=== PATIENT | female | born 1960 | race Caucasian/White ===

== ENCOUNTER 2016-07-19 13:14 | Outpatient (CLI) ==
[2012-09-25 15:48] VITALS: TEMP 97.7
[2015-04-02 16:01] VITALS: BMI 29.2
--- NOTE | 2016-07-19 14:15 | DI ---
EXAM: Three views of the right foot. History: Right foot pain. Findings: No acute fracture or dislocation. Small plantar spur. Mild polyarticular joint space na rrowing. No radiopaque foreign bodies. Impression: No acute osseous abnormality. Mild arthritis.
== END 2016-07-19 13:15 | disposition home or self-care (01) ==
LOC: RAD 13:14
PROVIDERS: ATTEND Internal Medicine
DX: M79.671 Pain in right foot (principal)

== ENCOUNTER 2016-10-28 11:01 | Outpatient (CLI) ==
[2012-09-25 15:48] VITALS: TEMP 97.7
[2015-04-02 16:01] VITALS: BMI 29.2
[2016-10-28 11:17] LABS: BASOPHILS % (AUTO) 0.6 % (0.0-3.0); EOSINOPHILS # (AUTO) 0.1 K/ul (0.0-0.7); EOSINOPHILS % (AUTO) 1.7 % (0.0-7.0); HEMATOCRIT 35.8 % (37.0-47.0); HEMOGLOBIN 12.6 g/dl (12.0-16.0); IMMATURE GRANULOCYTE % (AUTO) 0.4 % (0.0-5.0); LYMPHOCYTES # (AUTO) 1.7 K/uL (0.60-3.4); LYMPHOCYTES % (AUTO) 23.9 (10.0-50.0); MEAN CORPUSCULAR HEMOGLOBIN 30.4 pg (27.0-31.0); MEAN CORPUSCULAR HGB CONC 35.2 (31.8-35.4); MEAN CORPUSCULAR VOLUME 86.5 fl (81.0-99.0); MONOCYTES # (AUTO) 0.6 K/uL (0.4-2.0); NEUTROPHILS # (AUTO) 4.7 K/ul (2.0-6.9); NEUTROPHILS % (AUTO) 65.4; PLATELET COUNT 205 10^3/uL (140-440); RED BLOOD COUNT 4.14 10^6/ul (4.20-5.40); WHITE BLOOD COUNT 7.21 K/ul (4.6-10.2)
[2016-10-28 11:42] LABS: ALBUMIN 4.2 g/dL (3.4-5.0); ALBUMIN/GLOBULIN RATIO 1.08; ANION GAP 14.9; BILIRUBIN,TOTAL 0.51 mg/dL (0.00-1.20); BUN/CREATININE RATIO 10.89; CALCIUM 9.9 mg/dL (8.2-10.2); CREATININE 1.01 mg/dL (0.60-1.30); POTASSIUM 3.9 mmol/L (3.5-5.10); TOTAL PROTEIN 8.1 g/dL (6.4-8.2)
== END 2016-10-28 11:02 | disposition home or self-care (01) ==
LOC: LAB 11:01
PROVIDERS: ATTEND Internal Medicine
DX: R10.9 Unspecified abdominal pain (principal); R11.2 Nausea with vomiting, unspecified
CPT/HCPCS: 36415; 80053; 85025

== ENCOUNTER 2017-04-06 08:12 | Outpatient (CLI) ==
[2012-09-25 15:48] VITALS: TEMP 97.7
[2015-04-02 16:01] VITALS: BMI 29.2
== END 2017-04-06 08:13 | disposition home or self-care (01) ==
LOC: LAB 08:12
PROVIDERS: ATTEND Internal Medicine
DX: E11.9 Type 2 diabetes mellitus without complications (principal); I10 Essential (primary) hypertension; I63.9 Cerebral infarction, unspecified; R94.5 Abnormal results of liver function studies
CPT/HCPCS: 36415; 80053; 85025

== ENCOUNTER 2017-04-07 07:27 | Outpatient (CLI) ==
[2012-09-25 15:48] VITALS: TEMP 97.7
[2015-04-02 16:01] VITALS: BMI 29.2
--- NOTE | 2017-04-07 08:48 | US ---
EXAM: Ultrasound abdomen limited right upper quadrant HISTORY: Obstructive jaundice COMPARISON: None TECHNIQUE: Limited ultrasound abdomen right upper quadrant was performed FINDINGS: Visualized portion pancreas appears normal. Portions of the pancreas obscured secondary geoff wel gas shadowing. Liver normal in size and echogenicity. Main portal vein patent with direction of flow. Patient status post cholecystectomy. No biliary duct dilation with common bile duct measurin g 0.4 cm, noting distal common bile duct not visualized. IMPRESSION: Status post cholecystectomy. No biliary duct dilation, noting distal common bile duct n ot visualized.
== END 2017-04-07 07:28 | disposition home or self-care (01) ==
LOC: RAD 07:27
PROVIDERS: ATTEND Internal Medicine
DX: K83.1 Obstruction of bile duct (principal)

== ENCOUNTER 2017-05-16 06:58 | Outpatient (CLI) ==
[2012-09-25 15:48] VITALS: TEMP 97.7
[2015-04-02 16:01] VITALS: BMI 29.2
--- NOTE | 2017-05-16 09:13 | CT ---
EXAM: CT of the abdomen pelvis without contrast History: Abdominal pain. Comparison: Abdominal ultrasound 04/07/2017, CT abdomen pelvis 04/02/2015 Technique: Multiplanar CT images through the abdomen pelvis were obtained without the administration of IV contrast Findings: No change in the sub-centimeter pleural-based lung nodules. No acute osseous abnormalities. Status post cholecystectomy. Pneumobilia again seen within the liver. Spleen is unremarkable. No r enal stones and no hydronephrosis. No peripancreatic inflammation. Adrenal glands are unremarkable. No ureteral calculi. No bladder wall thickening. Adnexal structures appear appropriate for patien t's age. No bowel obstruction. No free air and no ascites. No inflammatory stranding. No perirect al inflammation. The appendix is not dilated or inflamed. Postsurgical changes of the bowel in the left abdomen. Impression: No acute intra-abdominal or pelvic process. No change compared to the prior study.
== END 2017-05-16 06:59 | disposition home or self-care (01) ==
LOC: RAD 06:58
PROVIDERS: ATTEND Internal Medicine
DX: R10.9 Unspecified abdominal pain (principal)

== ENCOUNTER 2017-12-19 21:16 | Inpatient (IN) ==
[2017-12-19] MEDS ORDERED: SODIUM CHLORIDE 1,000 ML IV STA (21:55)
[2017-12-19] MEDS ORDERED: ZOFRAN 4 MG/2 ML IVP STA (21:56)
[2017-12-19] MEDS ORDERED: ZOSYN 3.375 GM 3.375 GM in SODIUM CHLORIDE 50 ML IV STA (21:56)
[2017-12-19] MEDS ORDERED: MORPHINE 2 MG/ML SYRINGE IVP STA (22:01)
--- NOTE | 2017-12-19 23:48 | CT ---
EXAM: CT chest without intravenous contrast 12/19/2017. Sagittal and coronal reformatted images obt ained HISTORY: Cough and fever COMPARISON: 04/02/2015 FINDINGS: The heart size appears within normal limits. No pericardial effusion. Multifocal atelectasis. There is scattered small micro nodules of lesser and 3 mm diameter which lik katherine benign. Subpleural nodule in the left lower lobe on image 42 measures approximately 8 mm diameter. Subpleura l nodule in the right lower lobe on image 35 measures approximately 7 mm diameter. There is no focal pulmonary consolidation. No pleural effusion or pneumothorax. Limited views of the upper abdomen shows surgical changes of cholecystectomy. Pneumobilia. Trace fl uid along the inferior and posterior aspect of the liver. IMPRESSION: 1. Multifocal atelectasis. 2. Scattered benign appearing micro nodules. 3. Left lower lobe subpleural nodule 8 mm diameter. Right lower lobe subpleural nodule 7 mm diamete r. Follow-up CT chest could be obtained in approximately six - 12 months. 4. Please refer to report of CT abdomen pelvis for further evaluation.
--- NOTE | 2017-12-20 00:01 | CT ---
EXAM: CT abdomen and pelvis without and with intravenous contrast 12/19/2017. Sagittal and coronal reformatted images obtained HISTORY: Right upper quadrant pain and fever COMPARISON: 05/16/2017 FINDINGS: Postoperative changes of cholecystectomy. Pneumobilia is present. Edema is present along the inferior and posterior aspect of the right lobe of the liver. Focal low density within the live r at this site appears stable. Surrounding edema has increased. The adrenal glands and kidneys show no acute abnormality. The spleen shows no acute abnormality. Th e pancreatic duct measures up to approximately 3 mm diameter. This appears grossly stable. There is no evidence of bowel obstruction. A small amount of gas is present in the urinary bladder. This could be due to recent instrumentation versus infection. Normal appendix. IMPRESSION: 1. Edema is present along the inferior and posterior aspect of the right lobe of the liver. This is of uncertain etiology. This is new since the prior study. 2. Focal low density within the right lobe of the liver. This was also present on the prior study a nd appears stable. If further characterization of the liver is clinically indicated then MRI could be obtained. 3. Postoperative changes of cholecystectomy. 4. Pneumobilia. 5. No urinary or bowel obstruction. Normal appendix. 6. Gas within the urinary bladder. This could be due to recent instrumentation versus infection.
--- NOTE | 2017-12-20 00:15 | ED.PDOC ---
General ED Provider: Dr. KALPESH HILLMAN-ER Chief Complaint: Fever Stated Complaint: IM RUNNING FEVER AND MY BACK HURTS Time Seen by Physician: 21:30 Mode of Arrival: Walk-In Information Source: Patient Exam Limitations: No limitations Primary Care Provider: LILIA CONDON Nursing and Triage Documentation Reviewed and Agree: Yes Does patient meet sepsis criteria?: No System Inflammatory Response Syndrome: Not Applicable Sepsis Protocol: For patient's 13 years and over: Temp is 96.8 and below OR 101 and greater Pulse >90 BPM Resp >20/minute Acutely Altered Mental Status Are patient's symptoms suggestive of a new infection, such as: -Pneumonia -Skin, Soft Tissue -Endocarditis -UTI -Bone, Joint Infection -Implantable Device -Acute Abdominal Infection -Wound Infection -Meningitis -Blood Stream Catheter Infection -Unknown GI Complaint Exam - Abdominal Pain Complaint/Exam Onset: Gradual Duration: SEVERAL HOURS Symptoms Are: Still present Timing: Intermittent Initial Severity: Mild Current Severity: Mild Location of Pain: Diffuse Radiates To: Reports: Back, Flank Character: Reports: Dull, Aching Alleviating: Reports: Spontaneous resolution Associated Signs and Symptoms: Reports: Fever, Back pain Differential Diagnoses: Pancreatitis Review of Systems - Review Of Systems Constitutional: Reports: Fever Eyes: Reports: No symptoms Ears, Nose, Mouth, Throat: Reports: No symptoms Respiratory: Reports: No symptoms Cardiac: Reports: No symptoms GI: Reports: Abdominal pain, Nausea : Reports: Flank pain Musculoskeletal: Reports: No symptoms Skin: Reports: No symptoms Neurological: Reports: No symptoms Endocrine: Reports: No symptoms Hematologic/Lymphatic: Reports: No symptoms All Other Systems: Reviewed and Negative Past Medical History - Past Medical History Previously Healthy: No Endocrine: Reports: None Cardiovascular: Reports: Hypertension Respiratory: Reports: None Hematological: Reports: None Gastrointestinal: Reports: None Genitourinary: Reports: None Neuro/Psych: Reports: Anxiety, Depression Musculoskeletal: Reports: None Cancer: Reports: None Last Menstrual Period: 5 YEARS AGO - Surgical History General Surgical History: Reports: Hysterectomy, Cholecystectomy, Orthopedic ( right forearm) - Family History Family History: Reports: None - Social History Smoking Status: Former smoker Hx Substance Use: No Alcohol Screening: None - Immunizations Tetanus Shot up to Date: Yes Physical Exam - Physical Exam Appearance: Well-appearing, No pain distress, Well-nourished Eyes: DEL, EOMI, Conjunctiva clear ENT: Ears normal, Nose normal, Oropharynx normal Neck: Supple Respiratory: Airway patent, Breath sounds clear, Breath sounds equal, Respirations nonlabored Cardiovascular: RRR GI/: Soft, Tender Musculoskeletal: Normal strength, ROM intact, No edema, No calf tenderness Skin: Warm, Dry, Normal color Neurological: Sensation intact, Motor intact, Reflexes intact, Cranial nerves intact, Alert, Oriented Psychiatric: Affect appropriate, Mood appropriate Interpretation - Radiology Interpretation Radiology Interpretation By: Radiologist Radiology Results: Positive Exam Interpreted: CT Scan Re-Evaluation - Re-Evaluation Time of Re-Evaluation: 00:16 Status: Improved Vital Signs Stable: Yes Pain Level: 0 Appearance: NAD Lungs: Clear Skin: Warm and Dry Neuro: Alert and Oriented X3 CV: RRR Physician Notification - Case Discussed Physician Notified: dr condon Time of Notification: 00:17 Critical Care Note - Critical Care Note Total Time (mins): 0 Course - Course Hematology/Chemistry: 12/19/17 22:10 12/19/17 22:10 Orders, Labs, Meds: Lab Review 12/19/17 12/19/17 12/19/17 21:55 22:10 22:10 WBC 16.07 H RBC 3.57 L Hgb 10.7 L Hct 30.7 L MCV 86.0 MCH 30.0 MCHC 34.9 RDW Coeff of Lj 11.5 L Plt Count 260 Immature Gran % (Auto) 0.4 Neut % (Auto) 80.1 Lymph % (Auto) 9.1 L [place] % (Auto) 10.0 Eos % (Auto) 0.2 Baso % (Auto) 0.2 Immature Gran # (Auto) 0.1 Neut # (Auto) 12.9 H Lymph # (Auto) 1.5 [place] # (Auto) 1.6 Eos # (Auto) 0.0 Baso # (Auto) 0.0 Sodium 137.4 Potassium 4.04 Chloride 99.7 Carbon Dioxide 28.8 Anion Gap 12.94 BUN 13.8 Creatinine 1.05 Estimated GFR (MDRD) 54.00 BUN/Creatinine Ratio 13.14 Glucose 196.6 H Lactic Acid Calcium 9.58 Total Bilirubin 0.83 AST 19.1 ALT 14.6 Alkaline Phosphatase 107.4 Total Protein 8.05 Albumin 4.23 Globulin 3.82 Albumin/Globulin Ratio 1.10 Amylase 44.5 Lipase 58.1 Procalcitonin Urine Color Yellow Urine Clarity Slightly Urine pH 5.5 Ur Specific [place] 1.010 Urine Protein Negative Urine Glucose (UA) Negative Urine Ketones Negative Urine Blood Trace-lysed Urine Nitrite Negative Urine Bilirubin Negative Urine Urobilinogen 0.2 Ur Leukocyte Esterase 1+ Urine Microscopic RBC 0-2 Urine Microscopic WBC 5-10 Ur Squamous Epith Cells 0-2 Urine Bacteria 3+ 12/19/17 12/19/17 22:10 22:10 WBC RBC Hgb Hct MCV MCH MCHC RDW Coeff of Lj Plt Count Immature Gran % (Auto) Neut % (Auto) Lymph % (Auto) [place] % (Auto) Eos % (Auto) Baso % (Auto) Immature Gran # (Auto) Neut # (Auto) Lymph # (Auto) [place] # (Auto) Eos # (Auto) Baso # (Auto) Sodium Potassium Chloride Carbon Dioxide Anion Gap BUN Creatinine Estimated GFR (MDRD) BUN/Creatinine Ratio Glucose Lactic Acid 1.39 Calcium Total Bilirubin AST ALT Alkaline Phosphatase Total Protein Albumin Globulin Albumin/Globulin Ratio Amylase Lipase Procalcitonin 0.36 Urine Color Urine Clarity Urine pH Ur Specific [place] Urine Protein Urine Glucose (UA) Urine Ketones Urine Blood Urine Nitrite Urine Bilirubin Urine Urobilinogen Ur Leukocyte Esterase Urine Microscopic RBC Urine Microscopic WBC Ur Squamous Epith Cells Urine Bacteria Orders Category Date Time Status NPO REMINDER: IMAGING ONCE CARE 12/19/17 21:56 Completed IV [ED IV/MEDIPORT/POWERPORT] .ONCE EMERGENCY 12/19/17 21:55 Active AMYLASE Stat LAB 12/19/17 22:10 Completed BLOOD CULTURE (ED ONLY) Stat LAB 12/19/17 22:10 Received CBC W/ AUTO DIFF Stat LAB 12/19/17 22:10 Completed COMPREHENSIVE METABOLIC PANEL Stat LAB 12/19/17 22:10 Completed LACTIC ACID Stat LAB 12/19/17 22:10 Completed LIPASE Stat LAB 12/19/17 22:10 Completed PROCALCITONIN Stat LAB 12/19/17 22:10 Completed URINALYSIS C & S IF INDICATED Stat LAB 12/19/17 21:55 Completed URINE CULTURE Routine LAB 12/19/17 23:08 Received 0.9 % Sodium Chloride [Saline Flush] MEDS 12/19/17 21:55 Ordered 1 syr IVF PRN PRN Morphine Sulfate [Morphine 2 mg/ml Syringe] MEDS 12/19/17 22:01 Discontinued 2 mg IVP ONCE STA Ondansetron HCl/Pf [Zofran 4 mg/2 ml] MEDS 12/19/17 21:56 Discontinued 4 mg IVP ONCE STA Piperacillin Sodium/Tazobactam [Zosyn 3.375 gm] 3.375 MEDS 12/19/17 21:56 Discontinued gm 0.9 % Sodium Chloride [Sodium Chloride] 50 ml IV ONCE Sodium Chloride 0.9% [Sodium Chloride] 1,000 ml MEDS 12/19/17 21:55 Active IV 125 mls/hr CT ABDOMEN/PELVIS W/WO CONTRAS Stat RADS 12/19/17 21:[address] CHEST W/O CONTRAST Stat RADS 12/19/17 21:55 Completed Medications Generic Name Dose Route Start Last Admin Trade Name Freq PRN Reason Stop Dose Admin Sodium Chloride 1,000 mls @ 125 mls/hr 12/19/17 21:55 12/19/17 22:46 Sodium Chloride IV 12/20/17 05:54 125 mls/hr .Q8H STA Administration Sodium Chloride 1 syr 12/19/17 21:55 Saline Flush IVF PRN PRN To flush IV Discontinued Medications Generic Name Dose Route Start Last Admin Trade Name Freq PRN Reason Stop Dose Admin Piperacillin Sod/Tazobactam 50 mls @ 50 mls/hr 12/19/17 21:56 12/19/17 22:46 Sod 3.375 gm/ Sodium Chloride IV 12/19/17 22:55 50 mls/hr ONCE STA Administration Morphine Sulfate 2 mg 12/19/17 22:01 12/19/17 22:55 Morphine 2 Mg/Ml Syringe IVP 12/19/17 22:02 2 mg ONCE STA Administration Ondansetron HCl 4 mg 12/19/17 21:56 12/19/17 22:55 Zofran 4 Mg/2 Ml IVP 12/19/17 21:57 4 mg ONCE STA Administration Vital Signs: Temp Pulse Resp BP Pulse Ox 12/19/17 21:16 102.1 F H 106 H 20 133/81 96 Departure - Departure Time of Disposition: 00:17 Disposition: ADMITTED INPATIENT Discharge Problem: Fever, Flank pain Abdominal pain Qualifiers: Abdominal location: unspecified location Qualified Code(s): R10.9 - Unspecified abdominal pain UTI (urinary tract infection) Qualifiers: Urinary tract infection type: site unspecified Hematuria presence: without hematuria Qualified Code(s): N39.0 - Urinary tract infection, site not specified Instructions: Urinary Tract Infection in Women (ED) Condition: Good Pt referred to PMD for follow-up: Yes IPMP verified?: No Allergies/Adverse Reactions: Allergies codeine Adverse Reaction (Verified 12/19/17 21:30) Nausea Home Medications: Ambulatory Orders Enalapril Maleate [Vasotec] 20 mg PO BID 09/25/12 Lorazepam [Ativan] 0.5 mg PO TID PRN 09/25/12 Aspirin [Ecotrin] 325 mg PO DAILYWM #30 tablet. 04/05/15 Hydrocodone Bit/Acetaminophen [[place] 5-325] 1 tab PO BID PRN 04/05/15 Triamterene/Hydrochlorothiazid [Dyazide] 1 cap PO DAILY #30 capsule 04/05/15 Amlodipine Besylate [Norvasc] 5 mg PO DAILY 12/19/17 Losartan Potassium 100 mg PO DAILY 12/19/17 Disposition Discussed With: Patient, Family
[2017-12-20] MEDS ORDERED: TYLENOL PO PRN (00:19)
[2017-12-20] MEDS ORDERED: ATIVAN PO PRN (00:21)
[2017-12-20] MEDS ORDERED: SODIUM CHLORIDE 1,000 ML IV SCH (00:30)
[2017-12-20 01:14] VITALS: BMI 28.2
[2017-12-20] MEDS: MORPHINE 2 MG/ML SYRINGE IVP PRN ×5 (01:20→21:25)
[2017-12-20] MEDS: ZOFRAN 4 MG/2 ML IVP PRN ×4 (01:21→21:38)
[2017-12-20] MEDS: ZOSYN 3.375 GM 3.375 GM in SODIUM CHLORIDE 50 ML IV SCH ×4 (06:06→23:52)
[2017-12-20] MEDS: DYAZIDE PO SCH (08:30)
[2017-12-20] MEDS: COZAAR PO SCH (08:30)
[2017-12-20] MEDS: VASOTEC PO SCH ×2 (08:30→21:29)
[2017-12-20] MEDS: ASPIRIN EC PO SCH (08:30)
[2017-12-20] MEDS: LOVENOX SUBCUT SCH (08:31)
[2017-12-20] MEDS: NORVASC PO SCH (08:31)
--- NOTE | 2017-12-20 08:40 | PCM.PROG ---
Attending Provider: ATTENDING PROVIDER: Dr. LILIA BAUMANN DATE OF SERVICE: 12/20/17 SUBJECTIVE: This 57 year old WHITE/ F was hospitalized 12/20/17 with fever and chills. She is feeling better now. She is talking normally and is not sick. She didn't feel good for 4 days with right posterior renal angle pain mostly on deep breaths with fever. UA abnormal. CT scan of abdomen posteriorly shows inflammation around liver part. Will do US of kidneys and liver. REVIEW OF SYSTEMS: CONSTITUTIONAL: No night sweats. No fatigue, malaise, lethargy. No fever or chills. HEENT: Eyes: No visual changes. No eye pain. No eye discharge. ENT: No runny nose. No epistaxis. No sinus pain. No odynophagia. No congestion. RESPIRATORY: No cough, no congestion. No hemoptysis. No shortness of breath. CARDIOVASCULAR: No angina symptoms. No CHF symptoms. No atypical chest pain for CAD. No palpitations. No orthopnea.. GASTROINTESTINAL: No abdominal pain. No nausea or vomiting. No diarrhea or constipation. No hematemesis. No hematochezia. GENITOURINARY: No urgency. No frequency. No dysuria. No hematuria. No obstructive symptoms. No discharge. No pain. No significant abnormal bleeding. MUSCULOSKELETAL: No musculoskeletal pain; no joint swelling. NEUROLOGICAL: Awake, alert, oriented to time, place and person. No headache. No neck pain. No syncope. No seizures. No dizziness. PSYCHIATRIC: Not anxious. No depression. No suicidal thoughts. No homicidal thoughts. SKIN: No rash. No lesions. No wounds. ENDOCRINE: No unexplained weight loss. No weight gain. HEMATOLOGIC/LYMPHATIC: No anemia. No purpura. No petechiae. No prolonged or excessive bleeding. No palpable lymph nodes. PHYSICAL EXAMINATION: GENERAL: The patient is awake, alert and oriented, lying/sitting in bed in no distress. VITAL SIGNS: Temperature 99.9 F, Pulse 80, Respiratory Rate 20, BP 109/60, Pulse Ox 93% HEENT: Head normocephalic, atraumatic. Eyes: Extraocular muscles are intact. Pupils are equal, round and reactive to light and accommodation. Ears: No lesions. Nose appeared normal. Throat: No exudate or erythema. NECK: Supple. No JVD, no carotid bruit. No lymphadenopathy or thyromegaly. LUNGS: Clear to auscultation. Percussion note normal. Chest symmetrical. HEART: S1, S2, no S3. No murmurs. No cyanosis or clubbing. No ascites. Pulses: Dorsalis pedis and posterior tibial pulses +1 to +2 both sides. ABDOMEN: Soft. Non-tender. Bowel sounds active. No CVA tenderness. No mass felt. EXTREMITIES: No edema. Full range of motion of all extremities, equal. NEUROLOGIC: No focal deficit. Cranial nerves II through XII are grossly intact. No headache, no double vision or headache. SKIN: Warm and dry. Intact. Turgor-normal. LYMPHATIC: No palpable lymph nodes/no lymphedema. MUSCULOSKELETAL: Normal joints with no swelling. Muscle tone is normal. LAB REVIEW: 12/20/17 05:05 12/20/17 05:05 12/20/17 05:05: Sodium 136.0 L, Potassium 3.60, Chloride 100.0, Carbon Dioxide 31.0 H, Anion Gap 8.60, BUN 12.0, Creatinine 0.90, Estimated GFR (MDRD) 64.00, BUN/Creatinine Ratio 13.33, Glucose 163.0 H, Calcium 8.80, Total Bilirubin 0.90 , AST 18.0, ALT 13.0, Alkaline Phosphatase 86.0, Total Protein 7.30, Albumin 3.60, Globulin 3.70, Albumin/Globulin Ratio 0.97 12/20/17 05:05: WBC 14.64 H, RBC 3.34 L, Hgb 9.8 L, Hct 29.2 L, MCV 87.4, MCH 29.3, MCHC 33.6, RDW Coeff of Lj 11.5 L, Plt Count 256, Immature Gran % (Auto) 0.5, Neut % (Auto) 76.2, Lymph % (Auto) 11.0, [place] % (Auto) 11.9 H, Eos % (Auto ) 0.2, Baso % (Auto) 0.2, Immature Gran # (Auto) 0.1, Neut # (Auto) 11.2 H, Lymph # (Auto) 1.6, [place] # (Auto) 1.7, Eos # (Auto) 0.0, Baso # (Auto) 0.0 12/19/17 22:10: Procalcitonin 0.36 12/19/17 22:10: Lactic Acid 1.39 12/19/17 22:10: Sodium 137.4, Potassium 4.04, Chloride 99.7, Carbon Dioxide 28.8 , Anion Gap 12.94, BUN 13.8, Creatinine 1.05, Estimated GFR (MDRD) 54.00, BUN/ Creatinine Ratio 13.14, Glucose 196.6 H, Calcium 9.58, Total Bilirubin 0.83, AST 19.1, ALT 14.6, Alkaline Phosphatase 107.4, Total Protein 8.05, Albumin 4.23 , Globulin 3.82, Albumin/Globulin Ratio 1.10, Amylase 44.5, Lipase 58.1 12/19/17 22:10: WBC 16.07 H, RBC 3.57 L, Hgb 10.7 L, Hct 30.7 L, MCV 86.0, MCH 30.0, MCHC 34.9, RDW Coeff of Lj 11.5 L, Plt Count 260, Immature Gran % (Auto) 0.4, Neut % (Auto) 80.1, Lymph % (Auto) 9.1 L, [place] % (Auto) 10.0, Eos % (Auto) 0.2, Baso % (Auto) 0.2, Immature Gran # (Auto) 0.1, Neut # (Auto) 12.9 H, Lymph # (Auto) 1.5, [place] # (Auto) 1.6, Eos # (Auto) 0.0, Baso # (Auto) 0.0 12/19/17 21:55: Urine Color Yellow, Urine Clarity Slightly, Urine pH 5.5, Ur Specific [place] 1.010, Urine Protein Negative, Urine Glucose (UA) Negative, Urine Ketones Negative, Urine Blood Trace-lysed, Urine Nitrite Negative, Urine Bilirubin Negative, Urine Urobilinogen 0.2, Ur Leukocyte Esterase 1+, Urine Microscopic RBC 0-2, Urine Microscopic WBC 5-10, Ur Squamous Epith Cells 0-2, Urine Bacteria 3+ ASSESSMENT: LIKELY ACUTE PYELONEPHRITIS WITH ABNORMAL UA/FEVER AND CHILLS, RULE OUT SUBHEPATIC ABSCESS OR ANYTHING RELATED TO LIVER PLAN: 1. US of liver and kidneys 2. Daily CBC and CMP 3. Continue IV antibiotics 4. Add Azactam 1 gm q.12h Plan and coordination of the patient's care discussed in the presence of Medical Front Desk Coordinator and nurse. CONDITION: Stable SCRIBED BY: DAX RODAS Blast Hole Driller scribed while in presence of service performed by Dr. LILIA BAUMANN on 12/20/17 ([id number])
[2017-12-20] MEDS: SODIUM CHLORIDE 1,000 ML IV SCH ×2 (08:42→23:49)
[2017-12-20] MEDS: AZACTAM 1 GM in SODIUM CHLORIDE 50 ML IV SCH ×2 (09:14→21:55)
[2017-12-20] MEDS: TORADOL IVP PRN ×2 (10:03→18:28)
--- NOTE | 2017-12-20 13:02 | US ---
EXAM: Right upper quadrant abdominal ultrasound. History: Liver lesion. Comparison: CT abdomen pelvis 12/19/2017 Technique: Multiple sonographic images through the abdomen were obtained. Color duplex Doppler was used to interrogate vascular flow. Findings: No liver lesions identified sonographically. Antegrade flow within the main portal vein. No abdomin al ascites. Status post cholecystectomy. Common bile duct measures 0.4 cm in caliber. Limited visu alization of the right kidney demonstrates no evidence for hydronephrosis. Visualized pancreas demon strates no gross abnormality. There is pneumobilia within the liver. Impression: 1. No focal liver lesions identified sonographically. Recommend further evaluation with a MRI liver mass protocol to evaluate the liver lesion seen on recent CT. 2. Pneumobilia. 3. Status post cholecystectomy
--- NOTE | 2017-12-20 13:04 | US ---
EXAM: Renal ultrasound. History: Fever and right flank pain. Comparison: Renal ultrasound 04/08/2015 Technique: Multiple sonographic images through the kidneys were obtained. Color duplex Doppler was used to interrogate vascular flow. Findings: The bladder is not well distended. The right kidney measures 11.8 cm in long length demonstrating normal cortical echogenicity without e vidence for hydronephrosis, mass or shadowing calculus. The left kidney measures 10.3 cm in long length demonstrating normal cortical echogenicity without ev idence for hydronephrosis, mass or shadowing calculus. Impression: Sonographically normal kidneys
[2017-12-21] MEDS: NORCO 5-325 PO PRN ×2 (01:47→13:16)
[2017-12-21] MEDS: ZOSYN 3.375 GM 3.375 GM in SODIUM CHLORIDE 50 ML IV SCH ×4 (05:15→23:05)
[2017-12-21] MEDS: MORPHINE 2 MG/ML SYRINGE IVP PRN ×2 (06:26→22:28)
[2017-12-21] MEDS ORDERED: TORADOL IVP SCH (08:19)
[2017-12-21] MEDS: NORVASC PO SCH ×2 (08:58→09:03)
[2017-12-21] MEDS: AZACTAM 1 GM in SODIUM CHLORIDE 50 ML IV SCH ×2 (08:58→20:07)
[2017-12-21] MEDS: DYAZIDE PO SCH (08:58)
[2017-12-21] MEDS: TORADOL IVP SCH ×3 (08:58→20:08)
[2017-12-21] MEDS: VASOTEC PO SCH (08:58)
[2017-12-21] MEDS: COZAAR PO SCH ×2 (08:59→09:21)
[2017-12-21] MEDS: ASPIRIN EC PO SCH (08:59)
[2017-12-21] MEDS: LOVENOX SUBCUT SCH (09:04)
[2017-12-21] MEDS: ZOFRAN 4 MG/2 ML IVP PRN (10:53)
--- NOTE | 2017-12-21 11:29 | PN ---
DATE OF SERVICE: 12/21/17 SUBJECTIVE: The patient is sitting up in bed. She has had some nausea this morning, no vomiting. Her kidney function is significantly worse. It is unclear how she stated that she takes both Vasotec and Losartan, I believe this is a mixup on her part. Her urine culture is still pending. She did have a fever last night of 100.3. Hemoglobin is down at 8.9 today likely from hemodilution. She had CT of the abdomen which recommended ultrasound of the liver which then recommended MRI of the liver; however, kidney function is going to be too poor for MRI of the liver today. However, liver enzymes are normal. REVIEW OF SYSTEMS: CONSTITUTIONAL: Fever. No night sweats. No fatigue, malaise, lethargy. HEENT: Eyes: No visual changes. No eye pain. No eye discharge. ENT: No runny nose. No epistaxis. No sinus pain. No sore throat. No odynophagia. No congestion. RESPIRATORY: No cough, no congestion. No hemoptysis. No shortness of breath. CARDIOVASCULAR: No angina symptoms. No CHF symptoms. No atypical chest pain for CAD. No palpitations. No orthopnea. GASTROINTESTINAL: Right flank pain. Nausea. No diarrhea or constipation. No hematemesis. No hematochezia. GENITOURINARY: No urgency. No frequency. No dysuria. No hematuria. No obstructive symptoms. No discharge. No pain. No significant abnormal bleeding. MUSCULOSKELETAL: No musculoskeletal pain; no joint swelling. NEUROLOGICAL: No headache. No neck pain. No syncope. No seizures. No dizziness. PSYCHIATRIC: Not anxious. No depression. No suicidal thoughts. No homicidal thoughts. SKIN: No rash. No lesions. No wounds. ENDOCRINE: No unexplained weight loss. No weight gain. HEMATOLOGIC/LYMPHATIC: No anemia. No purpura. No petechiae. No prolonged or excessive bleeding. No palpable lymph nodes. PHYSICAL EXAMINATION: VITAL SIGNS: Temperature 98.6, pulse 58, BP 103/71, respiratory rate 16, 02 sat 95 on room air. HEENT: Head normocephalic, atraumatic. Eyes: Extraocular muscles are intact. Pupils are equal, round and reactive to light and accommodation. Ears: No lesions. Nose appeared normal. Throat: No exudate or erythema. NECK: Supple. No JVD, no carotid bruit. No lymphadenopathy or thyromegaly. LUNGS: Diminished breath sounds no edema. No ascites. Clear to auscultation. Percussion note normal. Chest symmetrical. HEART: S1, S2, no S3. No murmurs. No cyanosis or clubbing. No ascites. Pulses: Dorsalis pedis and posterior tibial pulses +1 to +2 both sides. ABDOMEN: Soft. Bowel sounds active. No CVA tenderness. No mass felt. EXTREMITIES: No edema. Full range of motion of all extremities, equal. NEUROLOGIC: No focal deficit. Cranial nerves II through XII are grossly intact. No headache, no double vision or headache. SKIN: Not dry. Intact. Turgor - normal. LYMPHATIC: No palpable lymph nodes/no lymphedema. MUSCULOSKELETAL: Normal joints with no swelling. Muscle tone is normal. LABS: WBC 12.04, RBC 2.97, Hgb 8.9, Hct 26.2, platelet 223. Chemistries: Sodium 138.5 , potassium 3.78, chloride 104.9, carbon dioxide 28.6, BUN 19.8, creatinine 1.90 , glucose 133.6, calcium 8.39, AST 13.2, ALT 9.5, Alk phos 80.0. Procalcitonin 0.36. ASSESSMENT: 1. ACUTE URINARY TRACT INFECTION 2. NAUSEA 3. ACUTE KIDNEY INJURY 4. DEHYDRATION 5. ANEMIA 6. ABNORMAL LIVER PER CT PLAN: 1. Will order MRI of the liver with contrast however it is unlikely that they will be able to due it today due to kidney function. 2. Increase IV fluids to 100 cc/hr. 3. D/C both Vasotec and Losartan as of today. We will cover her blood pressure if increases. 4. Urine culture pending. TIME SPENT: More than 30 minutes. Plan and coordination of the patient's care discussed in the presence of nurse. JOAQUIN
[2017-12-21] MEDS: SODIUM CHLORIDE 1,000 ML IV SCH (15:15)
[2017-12-22] MEDS: SODIUM CHLORIDE 1,000 ML IV SCH ×3 (03:10→18:01)
[2017-12-22] MEDS: ZOSYN 3.375 GM 3.375 GM in SODIUM CHLORIDE 50 ML IV SCH ×4 (05:01→23:31)
[2017-12-22] MEDS: TORADOL IVP SCH (05:02)
--- NOTE | 2017-12-22 10:13 | HP ---
DATE OF SERVICE: 12/21/17 HISTORY OF PRESENT ILLNESS: This is a 57-year-old white female who presented to the emergency room with her family. She stated she was running a fever. She was having right flank pain. She stated she was nauseated. 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 No malaise, lethargy. Positive for fever, fatigue. HEENT: Eyes: No visual changes. No eye pain. No eye discharge. ENT: No runny nose. No epistaxis. No sinus pain. No sore throat. No odynophagia. No ear pain. No congestion. RESPIRATORY: No cough, no congestion. No hemoptysis. No shortness of breath. CARDIOVASCULAR: No angina symptoms. No CHF symptoms. No atypical chest pain for CAD. No palpitations. No PND. No orthopnea. GASTROINTESTINAL: Nausea. Abdominal pain. No vomiting. No diarrhea or constipation. No hematemesis. No hematochezia. GENITOURINARY: No urgency. No frequency. No dysuria. No hematuria. No obstructive symptoms. No discharge. No pain. No significant abnormal bleeding. MUSCULOSKELETAL: No musculoskeletal pain. No joint swelling. No arthritis. NEUROLOGICAL: No headache. No neck pain. No syncope. No seizures. No dizziness. PSYCHIATRIC: Not anxious. No depression. No suicidal thoughts. No homicidal thoughts. SKIN: No rash. No lesions. No wounds. ENDOCRINE: No unexplained weight loss. No weight gain. HEMATOLOGIC/LYMPHATIC: No anemia. No purpura. No petechiae. No prolonged or excessive bleeding. No palpable lymph nodes. PERSONAL/FAMILY/SOCIAL HISTORY: The patient is a former smoker. No alcohol or ilicit drug use. She currently lives at home with her charge account clerk. MEDICATIONS: (HOME) Ativan 0.5 mg p.o. t.i.d. p.r.n. Vasotec 20 mg p.o. b.i.d. [place] 5-325 one tab p.o. b.i.d. p.r.n. Triamterene/Hydrochlorothiazide (Dyazide) one cap p.o. daily Aspirin (Ecotrin) 325 mg p.o. daily with meal Losartan Potassium 100 mg p.o. daily Norvasc 5 mg p.o. daily ALLERGIES: CODEINE PHYSICAL EXAMINATION: VITAL SIGNS: Temperature 102, heart rate 106, respirations 20, BP 133/81, pulse ox 96% on room air. HEENT: Head normocephalic, atraumatic. Eyes: Extraocular muscles are intact. Pupils are equal, round and reactive to light and accommodation. Ears: No lesions. Nose appeared normal. Throat: No exudate or erythema. NECK: Supple. No JVD, no carotid bruit. No lymphadenopathy or thyromegaly. LUNGS: Diminished breath sounds. Clear to auscultation. Percussion note normal. Chest symmetrical. HEART: S1, S2, no S3. No murmurs. No cyanosis or clubbing. No ascites. Pulses: Dorsalis pedis and posterior tibial pulses +1 to +2 bilaterally. ABDOMEN: Right flank pain. Soft. Nontender. Bowel sounds active. No CVA tenderness. No mass felt. EXTREMITIES: No edema. Full range of motion of all extremities, equal. NEUROLOGIC: No focal deficit. Cranial nerves II through XII are grossly intact. No headache, no double vision or headache. SKIN: Not dry. Intact. Turgor - normal. LYMPHATIC: No palpable lymph nodes/no lymphedema. MUSCULOSKELETAL: Normal joints with no swelling. Muscle tone is normal. White count 16.07, hemoglobin 10.7, hematocrit 30.7, platelets 260. Sodium 137, potassium 4, BUN 13, creatinine 1.05, glucose 196. Calcium 9.58, AST 19, ALT 14 , alkaline phosphatase 107. Amylase 44, lipase 58. Urine shows trace blood, negative ketones, negative nitrites. 1+ leuks, 3+ bacteria. Lactic acid 1.39, procalcitonin 0.36. CT of the abdomen showed edema present along the inferior and posterior aspect of the right lobe of liver which is new. Also showed a focal lobe density within the right lobe of liver which appears stable. Gas within the urinary bladder showing could be due to infection. ASSESSMENT: 1. ACUTE URINARY TRACT INFECTION 2. FEVER 3. ABDOMINAL PAIN 4. ABNORMAL LIVER ON CT SCAN 5. HISTORY OF ELEVATED LIVER ENZYMES 6. DYSLIPIDEMIA 7. DEHYDRATION PLAN: 1. Routine telemetry orders. 2. We will admit. 3. Start on NS at 100 cc/hr. 4. Tylenol 500 mg q.4 to 6 hr p.r.n. as needed for fever. 5. Start on Zosyn 3.375 IV q.6hr along with Azactam 1 gm q.12hr. 6. Toradol 30 mg IV q.8hr. 7. Continue all home medications. 8. Ultrasound of the liver in the morning per recommendation by the CT, liver enzymes are normal. She does have a history of elevated liver function. 9. Regular diet. 10. Zofran 4 mg IV q.6hr p.r.n. for nausea. 11. Will follow closely. TIME SPENT: More than 70 minutes. MTDD
[2017-12-22] MEDS: NORCO 5-325 PO SCH ×2 (10:44→20:39)
[2017-12-22] MEDS: AZACTAM 1 GM in SODIUM CHLORIDE 50 ML IV SCH ×2 (10:44→20:40)
[2017-12-22] MEDS: ASPIRIN EC PO SCH (10:44)
[2017-12-22] MEDS: DYAZIDE PO SCH (10:45)
[2017-12-22] MEDS: NORVASC PO SCH ×2 (10:46→20:40)
[2017-12-22] MEDS: LOVENOX SUBCUT SCH (10:50)
--- NOTE | 2017-12-22 11:57 | PN ---
DATE OF SERVICE: 12/21/17 SUBJECTIVE: Patience Ravi was seen and examined by the Nurse Practitioner. She was feeling somewhat better with less pain in the back. Likely cause of the pain and the fever is acute pyelonephritis. Will continue to monitor the patient's liver profile and kidney functions. The kidney functions went up surprisingly. The patient has been taking Vasotec and Cozaar together. PLAN: 1. Continue IV fluids. 2. Discontinue one of the medications, likely Vasotec. 3. Ultrasound of the kidneys and liver pending. CONDITION: Stable. TIME SPENT: More than 30 minutes. Plan and coordination of the patient's care discussed in the presence of nurse. JOAQUIN
--- NOTE | 2017-12-22 13:30 | PCM.PROG ---
Attending Provider: ATTENDING PROVIDER: Dr. LILIA BAUMANN This patient is seen with Amrita Moore, Nurse Practitioner. DATE OF SERVICE: 12/22/17 SUBJECTIVE: This 57 year old WHITE/ F was hospitalized 12/20/17. The patient still with right abdominal and CVA tenderness. She is scheduled for MRI of the liver. REVIEW OF SYSTEMS: CONSTITUTIONAL: No night sweats. No fatigue, malaise, lethargy. No fever or chills. HEENT: Eyes: No visual changes. No eye pain. No eye discharge. ENT: No runny nose. No epistaxis. No sinus pain. No odynophagia. No congestion. RESPIRATORY: No cough, no congestion. No hemoptysis. No shortness of breath. CARDIOVASCULAR: No angina symptoms. No CHF symptoms. No atypical chest pain for CAD. No palpitations. No orthopnea.. GASTROINTESTINAL: Positive for nausea and flank pain. No vomiting. No diarrhea or constipation. No hematemesis. No hematochezia. GENITOURINARY: No urgency. No frequency. No dysuria. No hematuria. No obstructive symptoms. No discharge. No pain. No significant abnormal bleeding. MUSCULOSKELETAL: No musculoskeletal pain; no joint swelling. NEUROLOGICAL: Awake, alert, oriented to time, place and person. No headache. No neck pain. No syncope. No seizures. No dizziness. PSYCHIATRIC: Not anxious. No depression. No suicidal thoughts. No homicidal thoughts. SKIN: No rash. No lesions. No wounds. ENDOCRINE: No unexplained weight loss. No weight gain. HEMATOLOGIC/LYMPHATIC: No anemia. No purpura. No petechiae. No prolonged or excessive bleeding. No palpable lymph nodes. PHYSICAL EXAMINATION: GENERAL: The patient is awake, alert and oriented, lying/sitting in bed in no distress. VITAL SIGNS: Temperature 99.2 F, Pulse 59, Respiratory Rate 16, BP 115/69, Pulse Ox 98% HEENT: Head normocephalic, atraumatic. Eyes: Extraocular muscles are intact. Pupils are equal, round and reactive to light and accommodation. Ears: No lesions. Nose appeared normal. Throat: No exudate or erythema. NECK: Supple. No JVD, no carotid bruit. No lymphadenopathy or thyromegaly. LUNGS: Clear to auscultation. Percussion note normal. Chest symmetrical. HEART: S1, S2, no S3. No murmurs. No cyanosis or clubbing. No ascites. Pulses: Dorsalis pedis and posterior tibial pulses +1 to +2 both sides. ABDOMEN: Soft. Mild tenderness right lower quadrant, right flank. Bowel sounds active. No CVA tenderness. No mass felt. EXTREMITIES: No edema. Full range of motion of all extremities, equal. NEUROLOGIC: No focal deficit. Cranial nerves II through XII are grossly intact. No headache, no double vision or headache. SKIN: Not dry. Intact. Turgor-normal. LYMPHATIC: No palpable lymph nodes/no lymphedema. MUSCULOSKELETAL: Normal joints with no swelling. Muscle tone is normal. LAB REVIEW: 12/22/17 04:30 12/22/17 04:30 12/22/17 04:30: Sodium 139.4, Potassium 3.68, Chloride 107.9 H, Carbon Dioxide 26.2, Anion Gap 8.98, BUN 16.2, Creatinine 1.44 H, Estimated GFR (MDRD) 37.00, BUN/Creatinine Ratio 11.25, Glucose 111.4 H, Calcium 8.35 L, Total Bilirubin 0.30, AST 15.3, ALT 9.1, Alkaline Phosphatase 70.2, Total Protein 6.23 L, Albumin 3.00 L, Globulin 3.23, Albumin/Globulin Ratio 0.92 12/22/17 04:30: WBC 9.66, RBC 2.77 L, Hgb 8.3 L, Hct 24.3 L, MCV 87.7, MCH 30.0 , MCHC 34.2, RDW Coeff of Lj 11.4 L, Plt Count 228, Immature Gran % (Auto) 0.4 , Neut % (Auto) 67.9, Lymph % (Auto) 20.1, [place] % (Auto) 9.1, Eos % (Auto) 2.2, Baso % (Auto) 0.3, Immature Gran # (Auto) 0.0, Neut # (Auto) 6.6, Lymph # (Auto ) 1.9, [place] # (Auto) 0.9, Eos # (Auto) 0.2, Baso # (Auto) 0.0 ASSESSMENT: 1. ACUTE PYELONEPHRITIS WITH URINE POSITIVE FOR KLEBSIELLA PNEUMONIA 2. FEVER, RESOLVED 3. QUESTIONABLE LIVER ABNORMALILTY WITH NORMAL ENZYMES 4. ANEMIA LIKELY DUE TO HEMODILUTION FROM IV FLUIDS 5. ACUTE KIDNEY INJURY LIKELY DEHYDRATION IMPROVING PLAN: 1. MRI of liver today 2. D/C Toradol 3. D/C Morphine 4. [place] b.i.d. [place] Plan and coordination of the patient's care discussed in the presence of Insulation Installer and nurse. CONDITION: STABLE SCRIBED BY: DAX RODAS Leasing Coordinator scribed while in presence of service performed by Dr. Baumann/Amrita Moore APRN on 12/22/17 ([id number])
--- NOTE | 2017-12-22 15:41 | MRI ---
EXAM: MRI abdomen without and with contrast HISTORY: Hepatic edema TECHNIQUE: Multiplanar, multisequence without and following the administration of intravenous Dotare m, 9 mL using a dynamic contrast enhanced hepatic protocol COMPARISON: CT abdomen from 12/19/2017 FINDINGS: The heart size is normal. No pericardial effusion is appreciated. Trace pleural effusion s layer dependently. There is no evidence of hepatic steatosis. There is focal decreased to once signal in the right poste rior hepatic lobe caudad aspect. There is focal atrophy in this region. There focal dilated bile du ct in this location. Minimal subjacent ascites is noted. There is enhancement investigation. No gale spicious hepatic lesions are evident. There minimal defacing artifact within the intrahepatic bile d ucts compatible with pneumobilia as seen on CT. No intrahepatic or extrahepatic dilatation is eviden t. The pancreas is markedly atrophic. The spleen is mildly enlarged up to 13.4 x 7.6 cm with normal signal. The adrenal glands are normal. The kidneys are grossly normal. The abdominal aorta has normal caliber flow signal. Visible intesti ally have normal signal caliber. No suspicious lymphadenopathy is detected. The bone marrow signal intensity is maintained. IMPRESSION: 1. Findings suggestive of previous ischemia in the right posterior hepatic lobe caudad aspect. Mini mal subjacent ascites. 2. Minimal pneumobilia. 3. Mild splenomegaly. 4. Pancreatic atrophy.
[2017-12-23] MEDS: SODIUM CHLORIDE 1,000 ML IV SCH (03:06)
[2017-12-23] MEDS: ZOSYN 3.375 GM 3.375 GM in SODIUM CHLORIDE 50 ML IV SCH ×4 (05:33→23:42)
[2017-12-23] MEDS: LOVENOX SUBCUT SCH (09:01)
[2017-12-23] MEDS: AZACTAM 1 GM in SODIUM CHLORIDE 50 ML IV SCH ×2 (09:01→20:33)
[2017-12-23] MEDS: NORCO 5-325 PO SCH ×2 (09:02→20:33)
[2017-12-23] MEDS: DYAZIDE PO SCH (09:02)
[2017-12-23] MEDS: ASPIRIN EC PO SCH (09:02)
--- NOTE | 2017-12-23 10:41 | PCM.PROG ---
Attending Provider: ATTENDING PROVIDER: Dr. LILIA BAUMANN This patient is seen with Amrita Moore, Nurse Practitioner. DATE OF SERVICE: 12/23/17 SUBJECTIVE: This 57 year old WHITE/ F was hospitalized 12/20/17. The patient is lying in bed, resting comfortably. MRI of the liver done yesterday. Liver enzymes remain normal. Kidney function is normal. No fever for 24 hours. She has been eating well. REVIEW OF SYSTEMS: CONSTITUTIONAL: No night sweats. No fatigue, malaise, lethargy. No fever or chills. HEENT: Eyes: No visual changes. No eye pain. No eye discharge. ENT: No runny nose. No epistaxis. No sinus pain. No odynophagia. No congestion. RESPIRATORY: No cough, no congestion. No hemoptysis. No shortness of breath. CARDIOVASCULAR: No angina symptoms. No CHF symptoms. No atypical chest pain for CAD. No palpitations. No orthopnea.. GASTROINTESTINAL: Improving right flank pain. No nausea or vomiting. No diarrhea or constipation. No hematemesis. No hematochezia. GENITOURINARY: No urgency. No frequency. No dysuria. No hematuria. No obstructive symptoms. No discharge. No pain. No significant abnormal bleeding. MUSCULOSKELETAL: No musculoskeletal pain; no joint swelling. NEUROLOGICAL: Awake, alert, oriented to time, place and person. No headache. No neck pain. No syncope. No seizures. No dizziness. PSYCHIATRIC: Not anxious. No depression. No suicidal thoughts. No homicidal thoughts. SKIN: No rash. No lesions. No wounds. ENDOCRINE: No unexplained weight loss. No weight gain. HEMATOLOGIC/LYMPHATIC: No anemia. No purpura. No petechiae. No prolonged or excessive bleeding. No palpable lymph nodes. PHYSICAL EXAMINATION: GENERAL: The patient is awake, alert and oriented, lying in bed in no distress. VITAL SIGNS: Temperature 98.7 F, Pulse 66, Respiratory Rate 16, BP 119/67, Pulse Ox 97% HEENT: Head normocephalic, atraumatic. Eyes: Extraocular muscles are intact. Pupils are equal, round and reactive to light and accommodation. Ears: No lesions. Nose appeared normal. Throat: No exudate or erythema. NECK: Supple. No JVD, no carotid bruit. No lymphadenopathy or thyromegaly. LUNGS: Clear to auscultation. Percussion note normal. Chest symmetrical. HEART: S1, S2, no S3. No murmurs. No cyanosis or clubbing. No ascites. Pulses: Dorsalis pedis and posterior tibial pulses +1 to +2 both sides. ABDOMEN: Soft. Mild right flank tenderness. Bowel sounds active. No CVA tenderness. No mass felt. EXTREMITIES: No edema. Full range of motion of all extremities, equal. NEUROLOGIC: No focal deficit. Cranial nerves II through XII are grossly intact. No headache, no double vision or headache. SKIN: Not dry. Intact. Turgor-normal. LYMPHATIC: No palpable lymph nodes/no lymphedema. MUSCULOSKELETAL: Normal joints with no swelling. Muscle tone is normal. LAB REVIEW: 12/23/17 05:30 12/23/17 05:30 12/23/17 05:30: Sodium 140.9, Potassium 3.78, Chloride 108.3 H, Carbon Dioxide 28.0, Anion Gap 8.38, BUN 13.6, Creatinine 1.15, Estimated GFR (MDRD) 48.00, BUN /Creatinine Ratio 11.82, Glucose 122.5 H, Calcium 8.37 L, Total Bilirubin 0.31, AST 22.5, ALT 10.2, Alkaline Phosphatase 71.8, Total Protein 6.44, Albumin 3.13 L, Globulin 3.31, Albumin/Globulin Ratio 0.94 12/23/17 05:30: WBC 8.59, RBC 2.82 L, Hgb 8.3 L, Hct 24.9 L, MCV 88.3, MCH 29.4 , MCHC 33.3, RDW Coeff of Lj 11.4 L, Plt Count 262, Immature Gran % (Auto) 0.5 , Neut % (Auto) 70.2, Lymph % (Auto) 18.2, [place] % (Auto) 7.9, Eos % (Auto) 2.6, Baso % (Auto) 0.6, Immature Gran # (Auto) 0.0, Neut # (Auto) 6.0, Lymph # (Auto ) 1.6, [place] # (Auto) 0.7, Eos # (Auto) 0.2, Baso # (Auto) 0.1 ASSESSMENT: 1. ACUTE PYELONEPHRITIS WITH URINE POSITIVE FOR KLEBSIELLA PNEUMONIA 2. FEVER, RESOLVED 3. QUESTIONABLE LIVER ABNORMALILTY WITH NORMAL ENZYMES 4. ANEMIA LIKELY DUE TO HEMODILUTION FROM IV FLUIDS 5. ACUTE KIDNEY INJURY LIKELY DEHYDRATION RESOLVED PLAN: 1. D/C HOME TODAY 2. D/C FLUIDS 3. LEVAQUIN 500 MG DAILY TIMES 7 DAYS 4. ZOFRAN 4 MG Q.6 P.R.N. #30 5. SEE BACK NEXT WEEK IN DR. BAUMANN'S OFFICE Plan and coordination of the patient's care discussed in the presence of Paint Preparer and nurse. CONDITION: STABLE SCRIBED BY: DAX RODAS Tile Fitter scribed while in presence of service performed by Dr. Baumann/Amrita Moore APRN on 12/23/17 ([id number])
[2017-12-23] MEDS ORDERED: LASIX IVP STA (17:21)
[2017-12-23] MEDS: ZOFRAN 4 MG/2 ML IVP PRN (18:20)
[2017-12-23] MEDS: NORVASC PO SCH (20:34)
[2017-12-24] MEDS: ZOSYN 3.375 GM 3.375 GM in SODIUM CHLORIDE 50 ML IV SCH ×2 (05:20→12:10)
[2017-12-24] MEDS: DYAZIDE PO SCH (09:14)
[2017-12-24] MEDS: ASPIRIN EC PO SCH (09:14)
[2017-12-24] MEDS: LOVENOX SUBCUT SCH (09:14)
[2017-12-24] MEDS: AZACTAM 1 GM in SODIUM CHLORIDE 50 ML IV SCH (09:14)
[2017-12-24] MEDS: NORCO 5-325 PO SCH (09:21)
[2017-12-24 09:49] VITALS: BP 125/72; TEMP 98.9
--- NOTE | 2017-12-25 10:47 | PN ---
DATE OF SERVICE: 12/22/17 SUBJECTIVE: The patient is doing well, eating well. No pain, no fever, no chills. MRI report is pending. It was done this morning. The patient's creatinine has improved some and now is back to 1.4. BUN is acceptable. REVIEW OF SYSTEMS: CONSTITUTIONAL: No night sweats. No fatigue, malaise, lethargy. No fever or chills. HEENT: Eyes: No visual changes. No eye pain. No eye discharge. ENT: No runny nose. No epistaxis. No sinus pain. No sore throat. No odynophagia. No congestion. RESPIRATORY: No cough, no congestion. No hemoptysis. No shortness of breath. CARDIOVASCULAR: No angina symptoms. No CHF symptoms. No atypical chest pain for CAD. No palpitations. No orthopnea. GASTROINTESTINAL: No abdominal pain. No nausea or vomiting. No diarrhea or constipation. No hematemesis. No hematochezia. GENITOURINARY: No urgency. No frequency. No dysuria. No hematuria. No obstructive symptoms. No discharge. No pain. No significant abnormal bleeding. MUSCULOSKELETAL: No musculoskeletal pain; no joint swelling. NEUROLOGICAL: No headache. No neck pain. No syncope. No seizures. No dizziness. PSYCHIATRIC: Not anxious. No depression. No suicidal thoughts. No homicidal thoughts. SKIN: No rash. No lesions. No wounds. ENDOCRINE: No unexplained weight loss. No weight gain. HEMATOLOGIC/LYMPHATIC: No anemia. No purpura. No petechiae. No prolonged or excessive bleeding. No palpable lymph nodes. PHYSICAL EXAMINATION: HEENT: Head normocephalic, atraumatic. Eyes: Extraocular muscles are intact. Pupils are equal, round and reactive to light and accommodation. Ears: No lesions. Nose appeared normal. Throat: No exudate or erythema. NECK: Supple. No JVD, no carotid bruit. No lymphadenopathy or thyromegaly. LUNGS: Clear to auscultation. Percussion note normal. Chest symmetrical. HEART: S1, S2, no S3. No murmurs. No cyanosis or clubbing. No ascites. Pulses: Dorsalis pedis and posterior tibial pulses +1 to +2 both sides. ABDOMEN: Soft. Nontender. Bowel sounds active. No CVA tenderness. No mass felt. EXTREMITIES: No edema. Full range of motion of all extremities, equal. NEUROLOGIC: No focal deficit. Cranial nerves II through XII are grossly intact. No headache, no double vision or headache. SKIN: Not dry. Intact. Turgor - normal. LYMPHATIC: No palpable lymph nodes/no lymphedema. MUSCULOSKELETAL: Normal joints with no swelling. Muscle tone is normal. ASSESSMENT: 1. FEVER, [place] LIKELY PYELONEPHRITIS. PLAN: 1. Continue antibiotics. The patient was seen and examined with the nurse practitioner. TIME SPENT: More than 30 minutes. Plan and coordination of the patient's care discussed in the presence of nurse. JOAQUIN
--- NOTE | 2017-12-25 10:55 | PN ---
DATE OF SERVICE: 12/23/17 SUBJECTIVE: The patient was seen and examined this morning. She is feeling better. She will be discharged home. She is going to be on Levaquin. The patient had abnormal MRI indicating ischemia of the hepatic lobe which is a very unusual finding. PHYSICAL EXAMINATION: GENERAL: The patient is oriented to time, place and person. HEENT: Head normocephalic, atraumatic. Eyes: Extraocular muscles are intact. Pupils are equal, round and reactive to light and accommodation. Ears: No lesions. Nose appeared normal. Throat: No exudate or erythema. NECK: Supple. No JVD, no carotid bruit. No lymphadenopathy or thyromegaly. LUNGS: Clear to auscultation. Percussion note normal. Chest symmetrical. HEART: S1, S2, no S3. No murmurs. No cyanosis or clubbing. No ascites. Pulses: Dorsalis pedis and posterior tibial pulses +1 to +2 both sides. ABDOMEN: Soft. Nontender. Bowel sounds active. No CVA tenderness. No mass felt. EXTREMITIES: No edema. Full range of motion of all extremities, equal. NEUROLOGIC: No focal deficit. Cranial nerves II through XII are grossly intact. No headache, no double vision or headache. SKIN: Not dry. Intact. Turgor - normal. LYMPHATIC: No palpable lymph nodes/no lymphedema. MUSCULOSKELETAL: Normal joints with no swelling. Muscle tone is normal. ASSESSMENT: It is likely the patient had fever from pyelonephritis. CONDITION: STABLE TIME SPENT: More than 30 minutes. Plan and coordination of the patient's care discussed in the presence of nurse. JOAQUIN
--- NOTE | 2017-12-25 11:07 | DS ---
DATE OF SERVICE: 12/24/17 FINAL DIAGNOSIS: 1. ACUTE PYELONEPHRITIS 2. KLEBSIELLA 3. HYPERTENSION 4. HISTORY OF CVA 5. DYSLIPIDEMIA 6. DIABETES MELLITUS 7. HISTORY OF CHOLECYSTECTOMY WITH COMPLICATIONS 8. GENERALIZED OSTEOARTHRITIS 9. DJD SPINE 10. ANXIETY DISORDER DISCHARGE INSTRUCTIONS: Followup appointment: The patient is to be seen on Tuesday, already has an appointment on 12/28/17 at 11:15 a.m. The patient is not to return to work until released. If the patient develops chills, fever or anymore pain to the right flank area she is to return to the emergency room or call me. MEDICATIONS AT DISCHARGE: Ativan 0.5 mg p.o. t.i.d. p.r.n. Triamterene/Hydrochlorothiazide (Dyazide) one cap p.o. daily Aspirin (Ecotrin) 325 mg p.o. daily with meal Losartan Potassium 100 mg p.o. daily Norvasc 5 mg p.o. daily NEW PRESCRIPTIONS: Cipro 500 mg twice a day for 5 days Hydrocodone ([place] 5-325) one tab p.o. b.i.d. p.r.n Extra [place] total of 15 given. Tbe patient had taken extra pain medication because of right flank pain. MEDICATION CHANGES: Do not take Vasotec DIET INSTRUCTIONS: Resume usual diet. Drink plenty of fluids ACTIVITY: Activities as tolerates. SMOKING: N/A DISEASE SPECIFIC EDUCATION: Pyelonephritis Klebsiella MRI results Medications Followup (instructed to return if needed) Discussed off work until seen in followup HOSPITAL COURSE: The patient was hospitalized with fever and right flank pain. On further workup , the patient had Klebsiella, acute pyelonephritis. The patient was treated with Zosyn/Azactam. The patient's condition improved. She became afebrile 3 to 4 days. At time of discharge, the patient was afebrile. WBC count was normal. Creatinine and BUN returned to normal. The patient's creatinine and BUN went up. She was taking Vasotec and Cozaar combination by mistake. Dehydration with creatinine went up to 1.8. The patient was taken off Vasotec. IV fluids were given. The patient's MRI showed possibility of right lobe hepatic ischemia which was a very unusual finding which according to the MRI had improved. The patient is up and about very eager to go home. Her appetite was normal. She was discharged in stable condition to be followed as an outpatient. TIME SPENT: More than 60 minutes. JOAQUIN
--- NOTE | 2017-12-25 11:09 | PN ---
CODING FOR BILLING 12/20/17 ADMISSION DAY LEVEL 5 12/21/17 INTERMEDIATE 12/22/17 INTERMEDIATE 12/23/17 INTERMEDIATE 12/24/17 DISCHARGE MTDD
--- NOTE | 2017-12-25 11:13 | PN ---
DATE OF SERVICE: 12/24/17 DISCHARGE NOTE SUBJECTIVE: The patient is up and about doing well, eating well, afebrile. REVIEW OF SYSTEMS: CONSTITUTIONAL: No night sweats. No fatigue, malaise, lethargy. No fever or chills. HEENT: Eyes: No visual changes. No eye pain. No eye discharge. ENT: No runny nose. No epistaxis. No sinus pain. No sore throat. No odynophagia. No congestion. RESPIRATORY: No cough, no congestion. No hemoptysis. No shortness of breath. CARDIOVASCULAR: No angina symptoms. No CHF symptoms. No atypical chest pain for CAD. No palpitations. No orthopnea. GASTROINTESTINAL: No abdominal pain. No nausea or vomiting. No diarrhea or constipation. No hematemesis. No hematochezia. GENITOURINARY: No urgency. No frequency. No dysuria. No hematuria. No obstructive symptoms. No discharge. No pain. No significant abnormal bleeding. MUSCULOSKELETAL: No musculoskeletal pain; no joint swelling. NEUROLOGICAL: No headache. No neck pain. No syncope. No seizures. No dizziness. PSYCHIATRIC: Not anxious. No depression. No suicidal thoughts. No homicidal thoughts. SKIN: No rash. No lesions. No wounds. ENDOCRINE: No unexplained weight loss. No weight gain. HEMATOLOGIC/LYMPHATIC: No anemia. No purpura. No petechiae. No prolonged or excessive bleeding. No palpable lymph nodes. PHYSICAL EXAMINATION: GENERAL: The patient is oriented to time, place and person. VITAL SIGNS: Temperature 98.3, pulse 68/min, respiratory rate 16, BP 116/59, pulse ox 93%. HEENT: Head normocephalic, atraumatic. Eyes: Extraocular muscles are intact. Pupils are equal, round and reactive to light and accommodation. Ears: No lesions. Nose appeared normal. Throat: No exudate or erythema. NECK: Supple. No JVD, no carotid bruit. No lymphadenopathy or thyromegaly. LUNGS: Clear to auscultation. Percussion note normal. Chest symmetrical. HEART: S1, S2, no S3. No murmurs. No cyanosis or clubbing. No ascites. Pulses: Dorsalis pedis and posterior tibial pulses +1 to +2 both sides. ABDOMEN: Soft. Nontender. Bowel sounds active. No CVA tenderness. No mass felt. EXTREMITIES: No edema. Full range of motion of all extremities, equal. NEUROLOGIC: No focal deficit. Cranial nerves II through XII are grossly intact. No headache, no double vision or headache. SKIN: Not dry. Intact. Turgor - normal. LYMPHATIC: No palpable lymph nodes/no lymphedema. MUSCULOSKELETAL: Normal joints with no swelling. Muscle tone is normal. LABS: Creatinine 1, BUN 11, potassium 4.0. ASSESSMENT: 1. ACUTE PYELONEPHRITIS UNDER CONTROL PLAN: 1. Discharge the patient home with instruction in case patient has recurrence of right flank pain, fever or chills to come to the emergency room. 2. Followup on Tuesday. Until then no work. CONDITION: Stable TIME SPENT: More than 30 minutes. Plan and coordination of the patient's care discussed in the presence of nurse. JOAQUIN
== END 2017-12-24 13:35 | disposition home or self-care (01) | DRG 552 ==
LOC: ED 21:16 → MEDSURG A 12-20 00:15
PROVIDERS: ADMIT Internal Medicine; ATTEND Internal Medicine
DX: M54.9 Dorsalgia, unspecified (principal); N39.0 Urinary tract infection, site not specified; N10 Acute pyelonephritis; N17.9 Acute kidney failure, unspecified; B96.1 Klebsiella pneumoniae [K. pneumoniae] as the cause of diseases classified elsewhere; E78.5 Hyperlipidemia, unspecified; E11.9 Type 2 diabetes mellitus without complications; E86.0 Dehydration; F41.9 Anxiety disorder, unspecified; D64.9 Anemia, unspecified; I10 Essential (primary) hypertension; M15.9 Polyosteoarthritis, unspecified; M47.9 Spondylosis, unspecified; R10.9 Unspecified abdominal pain; R11.0 Nausea; Z86.73 Personal history of transient ischemic attack (TIA), and cerebral infarction without residual deficits
CPT/HCPCS: 36415; 80053; 81001; 82150; 83605; 83690; 84145; 85025; 87040; 87086; 87186; 93005; 93010; 96360; 96365; 96375; 99284; 99285

== ENCOUNTER 2018-05-22 10:11 | Outpatient (CLI) ==
[2012-09-25 15:48] VITALS: TEMP 97.7
--- NOTE | 2018-05-22 11:06 | MAMMO ---
EXAM: Bilateral digital screening mammogram (2-D and 3-D) History: Screening Comparison: Bilateral mammogram 02/10/2016 Findings: MLO and CC views of bilateral breasts demonstrate scattered fibroglandular breast parenchy ma. CAD was reviewed by the radiologist. Tomosynthesis was performed. There are no dominant masses , no suspicious microcalcifications and no architectural distortions Impression: Stable negative mammogram. Recommend followup routine screening mammography in 1 year. BIRADS 1. Negative
== END 2018-05-22 10:12 | disposition home or self-care (01) ==
LOC: RAD 10:11
PROVIDERS: ATTEND Internal Medicine
DX: Z12.31 Encounter for screening mammogram for malignant neoplasm of breast (principal)